=== PATIENT | female | born 1985 | race African-American/Black ===

== ENCOUNTER 2023-01-17 13:57 | Emergency (ER) | payer OTHER ==
[~2023-01-17] VITALS: Ht 170.2 cm; Wt 65.0 kg
[2023-01-17 14:06] VITALS: TEMP 98.9; O2SAT 97
[2023-01-17] MEDS ORDERED: NAPR-1129 MT (17:07)
[2023-01-17 17:29] VITALS: BP 140/80; PULSE 70; RESP 16
== END 2023-01-17 17:30 | disposition home or self-care (01) ==
LOC: ER 13:57
DX: S89.91XA Unspecified injury of right lower leg, initial encounter (principal); W50.2XXA Accidental twist by another person, initial encounter; Y93.89 Activity, other specified; Y92.89 Other specified places as the place of occurrence of the external cause; Y99.8 Other external cause status
CPT/HCPCS: 73564; 73590; 99284; Z7610; L1830